=== PATIENT | female | born 1990 | race Caucasian/White ===

== ENCOUNTER 2021-04-02 15:07 | Observation (INO) | payer MEDICAID, SELFPAY ==
[2021-04-02] VITALS (14 sets, daily range): BP systolic 108–141; BP diastolic 54–83; PULSE 77–118; RESP 12–24; TEMP 36.3–37.1; O2SAT 95–99
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
[2021-04-02] MEDS: HYDROmorphone 2 MG/ML VIAL 1 MG IVP ×2 (15:27→17:42)
[2021-04-02 16:06] LABS: Abs Immature Grans 0.03 10^3/uL (0.0-0.06); Absolute Basophil Count 0.04 10^3/uL (0.0-0.2); Absolute Eosinophil Count 0.08 10^3/uL (0.0-0.7); Absolute Lymphocyte Count 1.35 10^3/uL (1.2-3.4); Absolute Monocyte Count 1.03 10^3/uL (0.1-0.8); Absolute Neutrophil Count 8.43 10^3/uL (1.2-6.7); Basophils % 0.4; Eosinophils % 0.7; HCT 39.2 % (36.0-46.0); HGB 12.9 g/dL (11.2-15.7); Immature Grans % 0.3; Lymphocytes % 12.3; MCH 31.6 pg (27.0-33.0); MCHC 32.9 % (32.0-36.0); MCV 96.1 fL (80-95); MPV 11.4 fL (8.0-11.0); Monocytes % 9.4; Neutrophils % 76.9; Nucleated RBC 0 %; Platelet Count 226 10^3/uL (130-400); RBC 4.08 10^6/uL (3.93-5.22); RDW 11.6 % (11.7-14.6); RDW-SD 41.1 fL; WBC 10.96 10^3/uL (4.4-10.8)
[2021-04-02 16:21] LABS: ALT 76 U/L (14-59); AST 52 U/L (15-37); Albumin 4.5 g/dL (3.4-5.0); Alkaline Phosphatase 81 U/L (46-116); Anion Gap 10.3 mmol/L (3-11); BUN 7 mg/dL (7-18); Bilirubin, Total 0.4 mg/dL (0.2-1.0); CO2 24.7 mmol/L (21.0-32.0); CREATININE 0.6 mg/dL (0.55-1.02); Calcium 9.1 mg/dL (8.5-10.1); Chloride 103 mmol/L (98-107); Creatine Kinase 547 U/L (26-192); Glucose 104 mg/dL (74-106); Potassium 3.8 mmol/L (3.5-5.1); Sodium 138 mmol/L (136-145); Total Protein 7.9 g/dL (6.4-8.2)
[2021-04-02] MEDS: Normal Saline 1,000 ML 1000 ML IV ×2 (17:01→17:42)
[2021-04-02 17:58] LABS: Creatine Kinase 960 U/L (26-192)
[2021-04-02] MEDS: Normal Saline 1,000 ML 200 ML IV (20:30)
[2021-04-02] MEDS: Ketorolac 30 MG/ML VIAL IVP (20:40)
[2021-04-02 21:19] LABS: COVID-19 PCR Negative (Negative)
[2021-04-02 21:34] LABS: Source Nasal/Nares
[2021-04-02] MEDS: HYDROmorphone 2 MG TAB PO (21:59)
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
[2021-04-03 04:03] VITALS: BP 109/69; PULSE 78; RESP 17; TEMP 36.4; O2SAT 98
[2021-04-03] MEDS: Normal Saline 1,000 ML 200 ML IV (05:30)
[2021-04-03] MEDS: HYDROmorphone 2 MG TAB PO ×2 (06:37→15:56)
[2021-04-03 07:03] LABS: Abs Immature Grans 0.01 10^3/uL (0.0-0.06); Absolute Basophil Count 0.04 10^3/uL (0.0-0.2); Absolute Eosinophil Count 0.27 10^3/uL (0.0-0.7); Absolute Neutrophil Count 2.48 10^3/uL (1.2-6.7); Basophils % 0.8; Eosinophils % 5.5; HCT 37.8 % (36.0-46.0); HGB 12.2 g/dL (11.2-15.7); Immature Grans % 0.2; Lymphocytes % 30.6; MCH 32.1 pg (27.0-33.0); MCHC 32.3 % (32.0-36.0); MCV 99.5 fL (80-95); MPV 11.7 fL (8.0-11.0); Monocytes % 12.2; Neutrophils % 50.7; Nucleated RBC 0 %; Platelet Count 184 10^3/uL (130-400); RDW 11.8 % (11.7-14.6); RDW-SD 43.1 fL
[2021-04-03 07:24] VITALS: BP 107/69; PULSE 80; RESP 14; TEMP 36.7; O2SAT 97
[2021-04-03] MEDS: Acetaminophen 325 MG TAB PO ×2 (07:33→15:56)
[2021-04-03 07:44] LABS: ALT 58 U/L (14-59); AST 55 U/L (15-37); Albumin 3.4 g/dL (3.4-5.0); Alkaline Phosphatase 60 U/L (46-116); BUN 6 mg/dL (7-18); Bilirubin, Total 0.5 mg/dL (0.2-1.0); CREATININE 0.5 mg/dL (0.55-1.02); Calcium 7.8 mg/dL (8.5-10.1); Chloride 108 mmol/L (98-107); Glucose 94 mg/dL (74-106); Magnesium 1.9 mg/dL (1.8-2.4); Potassium 3.4 mmol/L (3.5-5.1); Sodium 139 mmol/L (136-145); Total Protein 6.2 g/dL (6.4-8.2)
[2021-04-03 08:07] LABS: Creatine Kinase 1409 U/L (26-192)
--- NOTE | 2021-04-03 08:23 | DI.RAD_ITS ---
Exam(s) XR CLAVICLE RT EXAM: XR CLAVICLE RT CLINICAL HISTORY: Inadequate initial x-rays TECHNIQUE: 2D digital imaging was performed of the right clavicle. Two images were obtained. AP and axial views were obtained. COMPARISON: CR XR CLAVICLE RT LIMITED 1V from 04/02/2021 CR XR SHOULDER RT COMPLETE 2+V from 04/02/2021 FINDINGS: BONES: There is again seen an acute comminuted fracture of the midshaft of the right clavicle. There does appear to be mild increased displaced of the fracture fragments. No bony destructive lesion is seen. JOINTS: No dislocation present. SOFT TISSUE: Normal IMPRESSION: Right midclavicular fracture as described. DATA REPOSITORY: RADIATION DOSE DELIVERED:
[2021-04-03] MEDS: Escitalopram 20 MG TAB PO (09:20)
[2021-04-03] MEDS: Normal Saline Flush 10 ML SYR ×2 (09:21→09:33)
[2021-04-03] MEDS: Furosemide 20 MG/2 ML VIAL IVP (09:33)
[2021-04-03] MEDS: POTASSIUM CHLORIDE/0.9% NACL 1,000 ML 200 MEQ IV (09:36)
[2021-04-03] MEDS: Ketorolac 30 MG/ML VIAL IVP (12:36)
[2021-04-03] MEDS: Normal Saline Flush 10 ML SYR IVP (12:37)
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
[2021-04-03 13:39] LABS: Creatine Kinase 1497 U/L (26-192)
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
--- NOTE | 2021-04-03 14:56 | CHAPLAIN ---
Marifer was resting in bed when I visited. I explained my role and offered support. Marifer was polite, but not interested in further conversation.
--- NOTE | 2021-04-03 16:13 | PDOC.CMDIS ---
- If Service Date Differs Date of service: 04/03/21 Time of Service: 16:13 LACE Index Scoring Tool - Questions: Length of Stay (in days): 1 Acuity (Admit via E.D.?): Yes E.D. Visits: 1 - Answers: Total Score: 5 Risk of Readmission: Low Risk Care Management Discharge Reason for Hospitalization: Rhabdomyolysis, clavical fx Discharge Plan: Marifer will return home today with follow up in her local area. Her fiance will drive her home via private vehicle. She will follow up with her PCP and discharge plan of care. She is happy to be going home. Patient/Family Education Needs: Review discharge instructions and limitations, discussion of self care needs including ask me three.
== END 2021-04-03 16:15 | disposition home or self-care (01) ==
LOC: ER 19:22 → MS 20:03
PROVIDERS: Internal Medicine; Admitting Provider Family Medicine; Emergency Provider Physician Assistant; PCP Family Medicine; Visit Provider Family Medicine
DX: S42.021A Displaced fracture of shaft of right clavicle, initial encounter for closed fracture (principal); M62.82 Rhabdomyolysis; V86.62XA Passenger of snowmobile injured in nontraffic accident, initial encounter; F41.9 Anxiety disorder, unspecified
CPT/HCPCS: 36415; 80053; 81025; 82550; 87635; 96361; 96374; 96376; 99285; 71046; 71100; 73000; 73030; 73502; 83735; 85025; 99219; 99239; G0378; J1885; J1941

== ENCOUNTER 2021-04-07 10:27 | Day surgery (SDC) | payer MEDICAID, SELFPAY ==
[2021-04-07] VITALS (10 sets, daily range): BP systolic 108–126; BP diastolic 62–92; PULSE 70–101; RESP 11–21; TEMP 36.4–37.2; O2SAT 91–99; BMI 23.8
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
[2021-04-07] MEDS: Lactated Ringers 1,000 ML 30 ML IV (11:30)
--- NOTE | 2021-04-07 12:00 | DI.RAD_ITS ---
Exam(s) XR CLAVICLE RT LIMITED 1V EXAM: XR CLAVICLE RT LIMITED 1V CLINICAL HISTORY: broken right clavicle. TECHNIQUE: 2D digital imaging was performed. COMPARISON: CR XR CLAVICLE RT from 04/03/2021 FINDINGS: Fluoroscopy was provided during open reduction internal fixation displaced midshaft fracture of the r ight clavicle. See procedure report for details IMPRESSION: Total fluoroscopy time 6.6 seconds. Cumulative dose 0.1934mGy DATA REPOSITORY: RADIATION DOSE DELIVERED:
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
[2021-04-07] MEDS: ceFAZolin 2 GM/50 ML BAG IVPB (12:28)
--- NOTE | 2021-04-07 12:48 | W.ANESNERVE ---
Nerve Block Single Injection Procedure Date and Time Date Performed: 04/07/21 Procedure Start: 12:18 Location Where Procedure Performed Procedure Location: Day Surgery Unit Reason Performed: Postoperative Analgesia Requesting Provider: Jean-Claude Batista Timeout Performed Timeout Performed: Yes Monitoring Used ECG, Blood Pressure and SpO2 Sterility Sterility: Hand Hygiene, Surgical Cap, Surgical Mask, Sterile Gloves and Chlorhexidine Sedation Given During Procedure Sedation Given (Indicate Dose Given): Versed IV Dose:: 2 mg Patient Mental Status Patient Mental Status: Awake Nerve Block 1st Nerve Block: Laterality: Right Block Type: Superficial Cervical Plexus Needle / Catheter Used: 100mm SonoPlex II Local Anesthetic Bolus (Indicate Dose Given): Lidocaine used for local infiltration of skin, Injected in 3-5ml increments after negative blood aspiration and Bupivacaine 0.375% Dose:: 7 mL Additives (Indicate Dose Given): None Ultrasound: Sterile probe cover and gel used Ultrasound Image Saved?: Yes Nerve Stimulator: Not Used Paresthesia: None Procedure Tolerated: No Complications Procedure Outcome: Successful Performed By: Rosalio Collazo
--- NOTE | 2021-04-07 13:00 | ROE_ITS ---
Date of service: 04/07/21 Time of Service: 13:00 Operative Note Operative Note DATE OF PROCEDURE: 04/07/21 PRE-OP DIAGNOSIS: Right displaced segmental midshaft clavicle fracture POST-OP DIAGNOSIS: same PROCEDURE: Right clavicle open reduction internal fixation, CPT #07498 SURGEON: Jean-Claude Batista GUEST RELATIONS ASSOCIATE: Lydia Joyner ANESTHESIA TYPE: Local By Surgeon, General LMA/ETT and Primary Nerve Block Refer to Anesthesia Record ESTIMATED BLOOD LOSS: 10 COMPLICATIONS: None Patient was transported to: PACU Patient's condition: stable Implants: Synthes 3.5 mm superior clavicle plate x6 hole with 2x 3.5 mm cortex unicortical screws adjacent to fracture site and 2x suture tape Nice knot cerclage of anterior inferior segmental bone fragments and additional 2x bicortical cortex screws medially and 1x bicortical cortex and 1x locking screw laterally Indications: Please see complete medical record for details. Findings: Diminutive clavicle. Challenging curvature relative to plates. [place] plate selected. Bent to best accommodate patient anatomy. Longer plate would have set off the clavicle medially and laterally. Large anterior and inferior segmental comminution incorporated with suture cerclage. Procedure Description: In the operating room, general anesthesia was induced. The patient was positioned supine on the operating room table. All bony prominences were well- padded. Preoperative antibiotics were administered. The right clavicle was prepped and draped in the usual sterile fashion. The correct patient, procedure, and side of the procedure were all verified prior to incision. 30 cc of lidocaine with epinephrine and plain bupivacaine was infiltrated about the obvious prominent clavicles fracture site and medially laterally for the planned incisions. Sharp dissection was carried down to the fracture and extended medially laterally as necessary for superior clavicle plating. Care was taken to preserve soft tissue attachments anteriorly. There were no notable supraclavicular nerves. There was significant segmental inferior comminution separate anterior and posterior pieces. The main fracture ends had a reduction guzman, which was used to guide reduction with bone clamps. A superior clavicle plate with the best fit was was chosen and bent in multiple planes to fit centered over the fracture site. Provisional cortex screw was placed medially and laterally to the fracture site sent entering the plate as best possible about the fracture in both ends. The plate was compressed to the bone. Fracture reduction was maintained. Additional medial lateral cortex screws were placed adjacent to the fracture site in unicortical fashion given the inferior comminution with good fixation strength. The most medial screw was then drilled bicortically carefully divergent from the construct to provide greater working length and a bicortical cortex screw placed here. The most lateral screw was drilled and placed through the locking guide given better position of the locking hole over the distal clavicle. The unicortical screws were backed up. The posterior and anterior comminution reduced quite well underneath the fracture plate construct. The medial lateral screws were removed and then drill attempted to reach the far cortex of either of these pieces, but it was not possible given their size and orientation with split in the middle inferior clavicle. The unicortical screws were replaced with good fixation. Instead, 2 sets of suture tape doubled over in Nice knot cerclage were used to incorporate all these fragments and secure around the plate reduced fracture. Final fluoroscopy showed appropriate reduction and hardware placement. The construct demonstrated excellent stability. The wound was copiously irrigated normal saline. Deep tissue was closed in a watertight fashion using 2-0 Monocryl buried. Skin was closed in 3-0 Monocryl running. Skin glue was applied over the incision followed by Mepilex Band-Aid. The patient awoke from anesthesia without complication and was transferred to the recovery room in a stable condition.
[2021-04-07] MEDS: Tranexamic Acid 1,000 MG/10 ML VIAL 1000 MG (13:05)
[2021-04-07] MEDS: Bupivacaine 0.25% Pres-Free 30 ML VIAL (14:13)
--- NOTE | 2021-04-07 14:21 | W.PM.DSUDISC ---
Discharge Plan Disposition Patient Disposition: HOME Condition: Stable Discharge Details Reason For Visit: Right clavicle surgery Attending Provider: Jean-Claude Batista Primary Care Provider: Kathleen Weiss Home Meds and New Rx's Prescriptions: New naproxen 250 mg tablet 250 - 500 mg PO BID PRNQty: 40 0RF Rx Instructions: take with a meal oxycodone 5 mg tablet 5 - 10 mg PO Q4H MDD 30 mg PRN (Reason: moderate to severe pain) Qty: 18 0RF Continued escitalopram oxalate [Lexapro] 20 mg Tablet 20 mg PO DAILY 0RF acetaminophen 500 mg capsule 1,000 mg PO Q6H Qty: 30 0RF Discontinued ibuprofen 200 mg tablet See Rx Instructions .ROUTE .COMPLEX PRN (Reason: pain) Qty: 60 0RF Rx Instructions: Take either 600 mg by mouth every 6 hrs or 800 mg by mouth every 8 hrs for pain Discharge Instructions Additional Instructions: Surgery: Right clavicle open reduction internal fixation Activity: Nonweightbearing at all times. Gentle range of motion near the side. Use sling when up and about or out of the home for 6 weeks. Avoid any heavy activities for 2-3 months. A physical therapy prescription will be provided separately in the office at follow-up if needed.. Prescriptions: Naproxen 250 mg take 1-2 every 12 hours with a meal as needed for moderate pain Oxycodone 5 mg take 1-2 every 4-6 hours as needed for severe pain You may use [id number] Tylenol (acetaminophen) as needed for mild pain. These pain medications may be taken all at once or in different combinations as needed. Also, recommend Colace (docusate) as a stool softener as surgery and pain medicine cause constipation. Dressings: Leave dressing in place until follow-up. Keep clean and dry at all times. Follow-up: 10-[address] Batista Let us know right away if you develop any redness, drainage, fevers, chest pain, or trouble breathing. Do not drink alcohol or drive for at least 24 hours after anesthesia. Please call the office during business hours with any questions or concerns. Referrals: Jean-Claude Batista MD [ [facility] STAFF PHYSICIAN] - Discharge Orders Discharge Orders: Discharge Order (Routine); Ordered 04/07/21 Ordered By: Jean-Claude Batista DS: Diagnosis Discharge Diagnosis (1) Fracture of right clavicle: Status: Acute
--- NOTE | 2021-04-07 14:48 | W.ANESPOSTOP ---
Postoperative Evaluation Date, Time and Location Date Performed: 04/07/21 Time Performed: 14:48 Patient Location: PACU Vital Signs Most Recent Imported Vital Signs: Most Recent Vital Signs Temp Pulse Resp BP Pulse Ox 36.7 C 82 18 108/66 98 04/07/21 10:58 04/07/21 12:20 04/07/21 12:20 04/07/21 12:20 04/07/21 12:20 Pain Score Most Recent Pain Score: Most Recent Pain Score Pain Level 4 04/07/21 12:20 Assessment Mental Status: Arousable with meaningful communication Airway and Respiratory Function: Patent airway with normal (patient baseline) respiratory exam Cardiovascular Function: Hemodynamically Stable Hydration Status: Adequately Hydrated Nausea & Vomiting: No Nausea or Vomiting Pain: Pain is tolerable per patient (pain being addressed) Peripheral Nerve Block: Regional nerve block not resolved at time of post operative discharge
[2021-04-07] MEDS: fentaNYL 100 MCG/2 ML VIAL IVP ×2 (14:53→15:03)
== END 2021-04-07 16:45 | disposition home or self-care (01) ==
PROVIDERS: PCP Family Medicine; Visit Provider Student in an Organized Health Care Education/Training Program
PROC: (CPT 23515; principal; 2021-04-07 11:30)
DX: S42.021A Displaced fracture of shaft of right clavicle, initial encounter for closed fracture (principal); X58.XXXA Exposure to other specified factors, initial encounter; Y93.23 Activity, snow (alpine) (downhill) skiing, snowboarding, sledding, tobogganing and snow tubing
CPT/HCPCS: 23515; 76942; 81025; 73000; J0690; J1100; J1885; J2001; J2250; J2405; J2704; J3010

== ENCOUNTER 2021-04-17 14:07 | Outpatient (CLI) | payer MEDICAID, SELFPAY ==
--- NOTE | 2021-04-17 13:30 | DI.RAD_ITS ---
Exam(s) XR CLAVICLE RT EXAM: XR CLAVICLE RT INDICATION: s/p ORIF R CLAVICLE. COMPARISON: CR XR CLAVICLE RT from 04/03/2021. TECHNIQUE: 2D digital imaging was performed.Two views. FINDINGS: There has been no change in fracture or hardware alignment. DATA REPOSITORY: RADIATION DOSE DELIVERED:
== END 2021-04-17 14:08 | disposition home or self-care (01) ==
LOC: DIORS 14:07
PROVIDERS: PCP Family Medicine; Referring Provider Family Medicine; Visit Provider Physician Assistant Surgical
DX: S42.021D Displaced fracture of shaft of right clavicle, subsequent encounter for fracture with routine healing (principal); X58.XXXD Exposure to other specified factors, subsequent encounter
CPT/HCPCS: 73000

== ENCOUNTER 2021-05-21 11:15 | Outpatient (CLI) | payer MEDICAID, SELFPAY ==
--- NOTE | 2021-05-21 10:30 | DI.RAD_ITS ---
Exam(s) XR CLAVICLE RT EXAM: XR CLAVICLE RT CLINICAL HISTORY: RIGHT CLAVICLE FX F/U. TECHNIQUE: 2D digital imaging was performed. COMPARISON: CR XR CLAVICLE RT from 04/17/2021 FINDINGS: Two views There is stable appearance of the dorsal fusion plate across the midshaft fracture site of the right clavicle. No hardware loosening evident. No radiographic evidence of osteomyelitis. Fracture lines are still evident. Mild offset of the AC joint is also unchanged. IMPRESSION: As above. No significant radiographic change compared to 04/17/2021. DATA REPOSITORY: RADIATION DOSE DELIVERED:
--- NOTE | 2021-05-21 11:15 | DI.RAD_ITS ---
Exam(s) XR CHEST 1V IN DI DEPT EXAM: XR CHEST 1V IN DI DEPT CLINICAL HISTORY: CHEST XRAY. TECHNIQUE: 2D digital imaging was performed. COMPARISON: CR XR RIBS RT W PA LAT CHEST from 04/02/2021 FINDINGS: Single AP portable view. Heart size is upper normal. The mediastinum is not widened. Lungs are clear. No infiltrates nor obvious pleural effusions. There is dorsal fusion plate across a midshaft right clavicle fracture site now evident. There is no pneumothorax. IMPRESSION: No acute pulmonary findings on this single AP portable view of the chest. Right clavicle hardware. No pneumothorax DATA REPOSITORY: RADIATION DOSE DELIVERED: All CT scans at this facility use at least one of these dose optimization techniques: automated exposure control; mA and/or kV adjustment per patient size (includes targeted e xams where dose is matched to clinical indication); or iterative reconstruction.
== END 2021-05-21 11:16 | disposition home or self-care (01) ==
PROVIDERS: PCP Family Medicine; Referring Provider Family Medicine; Visit Provider Student in an Organized Health Care Education/Training Program
DX: S42.021D Displaced fracture of shaft of right clavicle, subsequent encounter for fracture with routine healing (principal); V86.6 Passenger of special all-terrain or other off-road motor vehicle injured in nontraffic accident
CPT/HCPCS: 71045; 73000